=== PATIENT | female | born 1950 | race Caucasian/White ===

== ENCOUNTER 2018-01-06 02:26 | Emergency (ER) | payer MEDICARE, BC ==
[~2018-01-06] VITALS: Ht 152.4 cm; Wt 43.0 kg
--- NOTE | 2018-01-06 02:35 | PHYS DOC ---
General Chief Complaint: COUGH Stated Complaint: CHEST WALL PAIN Time Seen by MD: 02:28 Source: patient Exam Limitations: clinical condition Problems: History of Present Illness Initial Comments 67 y/o female to ED complains of left-sided chest wall pain and worsening cough. Patient has history of COPD and asthma, states she's been dealing with a cough now for several days. She ran out of DuCardMunch treatments and Tessalon Perles are not helping. Tonight after a severe coughing spell she felt severe sharp pain between her ribs at the left side of her chest worse with deep breaths and certain movements. She's been struggling with dyspnea but denies any new symptoms tonight, no fever chills diaphoresis nausea vomiting arm or neck symptoms. On ED arrival vital signs are stable and although symptoms appear to be musculoskeletal full workup initiated. Timing/Duration: 1 week Severity: severe Modifying Factors: worse with movement, improves with rest, improves with other Associated Symptoms: cough, shortness of breath, other Allergies: Coded Allergies: Penicillins (Verified Allergy, Unknown, 01/06/18) Past Medical History Medical History: COPD, other (depression, hypertension, asthma, restless leg, hyperlipidemia) Surgical History: other Social History Smoker: quit greater than 1 year (quit smoking 16 years ago) Alcohol: rarely Drugs: none Review of Systems Constitutional: denies chills, denies diaphoresis, denies fever, denies malaise Respiratory: see HPI, cough, shortness of breath, wheezing Cardiovascular: chest pain, denies palpitations, denies syncope Gastrointestinal: denies abdominal pain, denies nausea, denies vomiting Musculoskeletal: see HPI Psychiatric/Neurological: denies headache, denies numbness, denies paresthesia Hematologic/Lymphatic: denies blood clots, denies easy bleeding, denies easy bruising Physical Exam General Appearance: moderate distress (severe coughing episodes and left-sided chest wall pain) Ear, Nose, Throat: hearing grossly normal, normal ENT inspection (dry membranes ) Neck: non-tender, supple Respiratory: decreased breath sounds, wheezing, other (point tender at the costal cartilage left side sixth rib interspace identically reproducing chief complaint) Cardiovascular: normal peripheral pulses, regular rate, rhythm Gastrointestinal: non tender, soft Back: no CVA tenderness, no vertebral tenderness Extremities: non-tender, normal inspection Neurologic/Psychiatric: prism measurer II-XII nml as tested, no motor/sensory deficits, alert, oriented x 3 Orders, Labs, Meds K+ 3.3, 20meq KCL given PO AP chest: Hyperinflation with COPD changes noted no discrete infiltrates interpreted by me. Labs unremarkable 0436: Patient rechecked, cough/wheeze resolved completely with solumedrol. Costal cartilage pain resolved with toradol patient states it is /10. Requesting discharge. I discussed prescription and [id number] medications as well as home medications. Discussed close PCP follow-up patient's questions were answered she expressed agreement and understanding with the treatment plan. Departure Time of Disposition: 04:35 Disposition: 01 HOME, SELF-CARE Diagnosis: COPD exacerbation, Costochondritis, hypokalem Condition: IMPROVED Patient Instructions: Costochondritis, Jwjk-[id number]-Ahyr, Hypokalemia-Brief Additional Instructions: Please review the patient education materials given by ED staff. ED one banana daily to supplement potassium. Use home albuterol as needed for cough. Prescription: Prednisone, DuoNeb, guaifenesin with codeine syrup Follow-up with your doctor in 3-5 days for recheck. Return to ED with new or changing symptoms. TAURUS ZAMORA DO Jan 06, 2018 02:35
[2018-01-06] MEDS ORDERED: ALBU8.5H8 INH (02:55)
[2018-01-06] MEDS ORDERED: ATEN25TA PO (02:59)
[2018-01-06] MEDS ORDERED: BUDE10.2 IH (02:59)
[2018-01-06] MEDS ORDERED: TIOT18CA IH (02:59)
[2018-01-06] MEDS ORDERED: BENZ100C PO (02:59)
[2018-01-06] MEDS ORDERED: PRAV10TA2 PO (02:59)
[2018-01-06] MEDS ORDERED: [UNRECOGNIZED DRUG - OTHER] PO (02:59)
[2018-01-06] MEDS ORDERED: ALBU2.5V14 NEB (02:59)
--- NOTE | 2018-01-06 03:10 | EKG ---
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
[2018-01-06] MEDS ORDERED: methylPREDNISolone SOD SUCC PF 125 MG/2 ML VIAL. IV ONE (03:30)
[2018-01-06] MEDS ORDERED: KETOROLAC 30 MG/ML VIAL. IV ONE (03:30)
[2018-01-06] MEDS ORDERED: ASPIRIN 81 MG TAB.CHEW PO ONE (03:30)
[2018-01-06] MEDS ORDERED: NITROGLYCERIN SUBLINGUAL 0.4 MG BOTTLE OF 25. SL PRN (03:30)
[2018-01-06 03:48] LABS: BASO % 0 % (0-3); EOS % 0 % (0-3); HEMATOCRIT 37.9 % (36.0-47.0); HEMOGLOBIN 12.8 g/dL (12.0-15.5); LYMPH # 0.8 x10^3/uL (1.0-4.8); LYMPH % 8 % (24-48); MEAN CORPUSCULAR HEMOGLOBIN 30 pg (25-35); MEAN CORPUSCULAR HGB CONC 34 g/dL (31-37); MEAN CORPUSCULAR VOLUME 89 fL (79-100); MONO # 1.3 x10^3/uL (0.0-1.1); MONO % 12 % (0-9); NEUT # 8.4 x10^3uL (1.8-7.7); NEUT % 80 % (31-73); PLATELET COUNT 399 x10^3/uL (140-400); RED BLOOD COUNT 4.24 x10^6/uL (3.50-5.40); RED CELL DISTRIBUTION WIDTH 12.9 % (11.5-14.5); WHITE BLOOD COUNT 10.6 x10^3/uL (4.0-11.0)
[2018-01-06 03:59] LABS: ALBUMIN 3.4 g/dL (3.4-5.0); ALBUMIN/GLOBULIN RATIO 0.8 (1.0-1.7); GFR 55.6; POTASSIUM 3.3 mmol/L (3.5-5.1); TOTAL BILIRUBIN 0.4 mg/dL (0.2-1.0); TOTAL PROTEIN 7.9 g/dL (6.4-8.2)
[2018-01-06 04:04] LABS: INFLUENZA A PATIENT NEGATIVE (NEGATIVE); INFLUENZA B PATIENT NEGATIVE (NEGATIVE)
[2018-01-06 04:15] VITALS: BP 122/55
[2018-01-06] MEDS ORDERED: POTASSIUM CHLORIDE 20 MEQ TABLET.ER. PO ONE (04:30)
[2018-01-06] MEDS ORDERED: PRED20TA PO (04:34)
[2018-01-06] MEDS ORDERED: IPRA3AMP NEB (04:34)
[2018-01-06] MEDS ORDERED: GUAI118L13 PO (04:34)
--- NOTE | 2018-01-06 09:03 | RAD ---
Indication: Chest pain, cough. Technique: Portable AP upright chest x-ray Comparison: Previous study from 05/29/2016 Findings: Heart is normal in size. Lungs are hyperinflated. Diffuse bilateral coarse interstitial opacities noted without focal consolidation. Redemonstrated are couple of small radiopaque nodules in the right midlung zone also seen on previous study from 2016. No pneumothorax or pleural effusion. Visualized bony thorax is within normal limits. Impression: 1. No acute cardiopulmonary process. Chronic interstitial changes. Superimposed interstitial infection not ruled out. 2. Stable couple of nodules in the right midlung zone also seen on previous CT chest from study from 2013 compatible with calcified granulomas.
== END 2018-01-06 04:45 | disposition home or self-care (01) ==
LOC: ER 02:26
DX: J44.1 Chronic obstructive pulmonary disease with (acute) exacerbation (principal); M94.0 Chondrocostal junction syndrome [Tietze]; E87.6 Hypokalemia; E78.5 Hyperlipidemia, unspecified; F32.9 Major depressive disorder, single episode, unspecified; G25.81 Restless legs syndrome; I10 Essential (primary) hypertension; Z87.891 Personal history of nicotine dependence; Z88.0 Allergy status to penicillin
CPT/HCPCS: 36415; 71045; 80053; 83605; 83880; 84484; 85025; 85379; 87040; 87804; 93005; 96374; 96375; 99285; J1885; J2930

== ENCOUNTER → 2018-07-08 | Outpatient (CLI) | payer BC ==
[~2018-07-08] MED LIST: ALBU2.5V14 NEB; ALBU8.5H8 INH; ATEN25TA PO; BENZ100C PO; BUDE10.2 IH; GUAI118L13 PO; IPRA3AMP29 NEB; PRAV10TA2 PO; PRED20TA PO; TIOT18CA IH; [UNRECOGNIZED DRUG - OTHER] PO
--- NOTE | 2018-07-09 08:21 | RAD ---
Chest, 2 views, 07/08/2018: HISTORY: Unexplained weight loss Comparison is made to a study from 01/06/2018. The heart size is normal. There are emphysematous changes in the lungs with mild parenchymal scarring. A nodule projected over the anterior aspect of the right lung on the lateral view is unchanged since 05/29/2016. The CT study from 03/12/2014 shows that this is a bilobed nodule with areas of dense central calcification compatible with old granulomatous disease. No acute infiltrate is seen. There is no evidence of pleural fluid. Moderate scattered spurs are present in the spine. IMPRESSION: 1. Emphysema. 2. Old healed granulomatous disease in the chest. 3. No acute abnormality is detected. Electronically signed by: Scar Andrew MD (07/09/2018 8:18 AM) [facility]
== END | disposition home or self-care (01) ==
LOC: DXRAD 17:40
PROVIDERS: ATTEND Family Medicine
DX: J43.9 Emphysema, unspecified (principal); I10 Essential (primary) hypertension; E78.5 Hyperlipidemia, unspecified; Z87.891 Personal history of nicotine dependence
CPT/HCPCS: 71046

== ENCOUNTER → 2018-08-12 | Outpatient (CLI) | payer BC ==
--- NOTE | 2018-08-12 13:37 | RAD ---
EXAM: Left hip, 2 views; left femur, 2 views. HISTORY: Pain and numbness. COMPARISON: None. FINDINGS: Frontal and frog-leg views left hip and frontal and lateral views left femur are obtained. There is no fracture, dislocation or subluxation. No lytic or sclerotic osseous lesion is seen. There is no periosteal reaction. IMPRESSION: No acute osseous finding. Electronically signed by: Lakisha Landers MD (08/12/2018 1:33 PM) [place] [id number]
== END | disposition home or self-care (01) ==
LOC: PMG 10:42
PROVIDERS: ATTEND Family Medicine
DX: R20.0 Anesthesia of skin (principal)
CPT/HCPCS: 73502; 73552

== ENCOUNTER → 2020-05-31 | Outpatient (CLI) | payer BC ==
[~2020-05-31] MED LIST changes: +ALBU2.5V8 INH; -ALBU8.5H8 INH; -ATEN25TA PO; +ATEN25TA42 PO
== END | disposition home or self-care (01) ==
LOC: LAB 08:50
PROVIDERS: ATTEND Nurse Anesthetist, Certified Registered
DX: Z01.818 Encounter for other preprocedural examination (principal); Z11.59 Encounter for screening for other viral diseases; K22.70 Barrett's esophagus without dysplasia
CPT/HCPCS: 36415; U0003

== ENCOUNTER → 2020-06-03 | Day surgery (SDC) | payer MEDICARE, BC ==
[~2020-06-03] MED LIST changes: +IPRATRPIUM/ALBUTEROL 0.5/2.5MG 3 ML NEBU. NEB PRN; +IV RINGERS SOLUTION,LACTATED 1,000 ML IV SCH; +MIDAZOLAM HCL PF 2 MG/2 ML VIAL. IV ONE; +ONDANSETRON PF 4 MG/2 ML VIAL. IV PRN; +PROPOFOL 10,000 MCG/ML (20ML) VIAL IV ONE
[2020-06-03 11:35] VITALS: BP 121/65
--- NOTE | 2020-06-07 18:11 | PATHOLOGY ---
[facility] Accession Number: [id number] . 01 Material submitted: . PART A: stomach - GASTRIC BIOPSY PART B: small bowel - SMALL BOWEL BIOPSY PART C: esophagus - IRREGULAR Z LINE BIOPSY PART D: esophagus - ESOPHAGUS BIOPSY . 01 Clinical history: . None provided. . 02 Diagnosis: A. Gastric biopsies: - Chronic gastritis, mild, with small focus of intestinal metaplasia. . B. Small bowel biopsies: - No significant pathologic abnormalities. . C. Irregular Z-line biopsies: - Segments of hyperplastic squamous esophageal and esophagogastric mucosa showing chronic inflammation, and segment of specialized columnar epithelium showing intestinal metaplasia with goblet cells consistent with Fortune's change. . D. Esophageal biopsies: - Segments of mildly hyperplastic squamous esophageal mucosa. (JPM:loren 06/07/2020) [facility] 06/07/2020 1725 Local . 02 Comment: Sections of the gastric biopsy reveal segments of gastric antral mucosa which show congestion, mild chronic inflammation, and a small focus of intestinal metaplasia. A properly controlled immunoperoxidase stain for Helicobacter is negative for Helicobacter organisms. . Sections of the small bowel biopsy reveal segments of duodenal and small intestine mucosa. Where best oriented, the mucosal villi show no sprue-like changes or significant inflammatory changes. . Sections of the irregular Z-line biopsy reveal segments of hyperplastic squamous esophageal and esophagogastric mucosa showing moderate chronic inflammation, in addition to a segment of columnar lined mucosa showing mild chronic inflammation and intestinal metaplasia with goblet cells consistent with Fortune's change. There is no dysplasia or evidence of malignancy. . Sections of the esophageal biopsy reveal segments of focally tangentially oriented mildly hyperplastic squamous esophageal mucosa. There is no evidence of an eosinophilic esophagitis. There is no evidence of Fortune's change, dysplasia or malignancy. (JPM:loren 06/07/2020) . Special stain performed: Immunoperoxidase for Helicobacter on A1. . 02 Electronically signed: . Jose West MD, Pathologist NPI- [id number] . 01 Gross description: . A. Received in formalin labeled "Lindsey Ozuna, gastric for H. pylori" is a 0.5 x 0.4 x 0.1 cm aggregate of olvera-brown soft tissue fragments. The specimen is submitted entirely in A1. . B. Received in formalin labeled "Lindsey Ozuna, small bowel rule out sprue" is a 0.7 x 0.7 x 0.1 cm aggregate of olvera-brown soft tissue fragments. The specimen is submitted entirely in B1. . C. Received in formalin labeled "Lindsey Ozuna, irregular Z line for hx of Fortune's" is a 1.0 x 0.6 x 0.1 cm aggregate of olvera-brown soft tissue fragments. The specimen is submitted entirely in C1. . D. Received in formalin labeled "Lindsey Ozuna, esophagus BX rule out eosinophilic esophagitis" is a 0.8 x 0.5 x 0.1 cm aggregate of olvera-brown soft tissue fragments. The specimen is submitted entirely in D1. ([facility]; 06/06/2020) [facility] 06/07/2020 1045 Local . 02 Pathologist provided ICD-10: K29.50, K22.70 . 02 CPT . 649523, 486858, 909673, 031202, D59074 Specimen Comment: A courtesy copy of this report has been sent to [phone] Specimen Comment: [id number] Specimen Comment: Report sent to / DR BRIZUELA Performed at: 01 [facility] [address] [facility] [address], [place] [id number] MD Vance Fatima MD Phone: [phone] Performed at: 02 [facility] [address] [place], [place] [id number] MD Jose West MD Phone: [phone]
== END | disposition home or self-care (01) ==
LOC: SURG 08:46
PROVIDERS: ATTEND Internal Medicine Gastroenterology
DX: K29.50 Unspecified chronic gastritis without bleeding (principal); K22.2 Esophageal obstruction; K44.9 Diaphragmatic hernia without obstruction or gangrene; K22.70 Barrett's esophagus without dysplasia; R63.4 Abnormal weight loss; Z88.0 Allergy status to penicillin; Z79.899 Other long term (current) drug therapy
CPT/HCPCS: 43239; 43450; J2704; J7120

== ENCOUNTER 2020-09-13 15:12 | Observation (INO) | payer BC, MEDICARE ==
[~2020-09-13] VITALS: Ht 152.4 cm; Wt 33.4 kg
[~2020-09-13 15:12] MED LIST changes: -IPRATRPIUM/ALBUTEROL 0.5/2.5MG 3 ML NEBU. NEB PRN; -IV RINGERS SOLUTION,LACTATED 1,000 ML IV SCH; -MIDAZOLAM HCL PF 2 MG/2 ML VIAL. IV ONE; -ONDANSETRON PF 4 MG/2 ML VIAL. IV PRN; -PROPOFOL 10,000 MCG/ML (20ML) VIAL IV ONE
[2020-09-13] MEDS ORDERED: IV NORMAL SALINE 1,000ML 1,000 ML IV ONE ×2 (15:15→17:00)
--- NOTE | 2020-09-13 15:38 | PHYS DOC ---
Past History Past Medical History: COPD, Hypertension Past Surgical History: Smoking: Non-smoker Alcohol Use: Heavy Drug Use: None General Adult EDM: Chief Complaint: DIZZY/LIGHT HEADED HPI: HPI: 70-year-old female presents with dizziness and 2 falls today. Patient tells me that she has had intermittent dizziness which she describes as a feeling of motion. She has fallen down 2 times today. She has gotten very weak and unable to keep her self standing up. She states that she had a similar episode to this a year ago and they did not figure out what was causing it. The patient states that she feels shaky all over. She is wondering about Parkinson's. There is no family history of Parkinson's. She has never been diagnosed with Parkinson's. She further admits to seeing moving shadows at night. She knows that they are not there. She does not describe any specific figures. The patient is a daily alcohol drinker. She tells me that she drinks 2 beers a day and the occasional bloody Shantelle. Her last drink was yesterday. She denies fever or chills. Family called the emergency room and is also concerned about Parkinson's. They state she also has audible hallucinations. Today family found her outside of the house where she lives with her son. She was in the yard on the ground and could not stand up. Review of Systems: Review of Systems: Constitutional: Denies fever or chills. Generalized weakness. Eyes: Denies change in visual acuity HENT: Denies nasal congestion or sore throat Respiratory: Denies cough or shortness of breath Cardiovascular: Denies chest pain or edema GI: Denies abdominal pain, nausea, vomiting, bloody stools or diarrhea : Denies dysuria Musculoskeletal: Denies back pain or joint pain Integument: Denies rash Neurologic: Dizziness. Denies headache, focal weakness or sensory changes Endocrine: Denies polyuria or polydipsia Lymphatic: Denies swollen glands Psychiatric: anxiety Current Medications: Current Meds: Current Medications Medications (Trade) Dose Ordered Sig/Ashley Start Time Stop Time Status Last Admin Dose Admin Sodium Chloride 1,000 ml @ 1,000 mls/hr 1X ONCE 09/13/20 15:15 09/13/20 16:14 Allergies: Allergies: Allergies Coded Allergies Type Severity Reaction Last Updated Verified Penicillins Allergy Unknown 01/06/18 Yes Physical Exam: PE: Constitutional: Well developed, thin, no acute distress, non-toxic appearance. [] HENT: Normocephalic, atraumatic, bilateral external ears normal, oropharynx moist, no oral exudates, nose normal. [] Eyes: PERRLA, EOMI, conjunctiva normal, no discharge. [] Neck: Normal range of motion, no tenderness, supple, no stridor. [] Cardiovascular: Heart rate regular rhythm, no murmur [] Lungs & Thorax: Bilateral breath sounds clear to auscultation [] Abdomen: Bowel sounds normal, soft, no tenderness, no masses, no pulsatile m asses. [] Skin: Warm, dry, no erythema, no rash. [] Back: No tenderness, no CVA tenderness. [] Extremities: No tenderness, no cyanosis, no clubbing, ROM intact, no edema. [] Neurologic: Alert and oriented X 3, normal motor function, normal sensory function, no focal deficits noted. [] Psychologic: Affect normal, judgement normal, mood anxious. [] Current Patient Data: Vital Signs: Vital Signs Date Time Temp Pulse Resp B/P (MAP) Pulse Ox O2 Delivery O2 Flow Rate FiO2 09/13/20 15:24 97.5 105 20 178/83 (114) 93 Room Air EKG: EKG: [] Radiology/Procedures: Radiology/Procedures: [] Impressions: CT HEAD INDICATION: Reason: recent fall, dizzy, etoh / Spl. Instructions: / History: COMPARISON: None Available. Exposure: One or more of the following individualized dose reduction techniques were utilized for this examination: 1. Automated exposure control 2. Adjustment of the mA and/or kV according to patient size 3. Use of iterative reconstruction technique TECHNIQUE: 5 mm contiguous axial images were obtained from the skull base to the vertex in both bone and soft tissue algorithm. FINDINGS: No abnormal attenuation within the brain parenchyma. No evidence of acute intracranial hemorrhage. No extra-axial fluid collections. No mass effect or midline shift. Ventricular size is appropriate. Basal cisterns are patent. No fractures identified.Becerra-white differentiation is preserved.Globes and orbits are within normal limits. Paranasal sinuses and mastoid air cells are clear. IMPRESSION: No acute intracranial findings. Electronically signed by: Americo Brown MD (09/13/2020 4:00 PM) [id number] DICTATED AND SIGNED BY: AMERICO BROWN MD DATE: 09/13/20 1600 CC: SID WERNER DO; TANMAY BRIZUELA MD ~ Heart Score: Risk Factors: Risk Factors: DM, Current or recent (<one month) smoker, HTN, HLP, family history of CAD, obesity. Risk Scores: Score 0 - 3: 2.5% MACE over next 6 weeks - Discharge Home Score 4 - 6: 20.3% MACE over next 6 weeks - Admit for Clinical Observation Score 7 - 10: 72.7% MACE over next 6 weeks - Early Invasive Strategies Course & Med Decision Making: Course & Med Decision Making Pertinent Labs and Imaging studies reviewed. (See chart for details) The patient's labs are unremarkable. Her head CT is negative for acute findings. Her urinalysis is negative for infection or drugs. The patient's symptoms could have a central cause, but they could also be related to her alcohol consumption. At this time it does not appear that she can function at home. I spoke with the hospitalist, Dr. Cardona and he has accepted the patient for admission. He will have physical therapy and likely neurology see the patient for more in-depth evaluation of her mental status and hallucinations. [] Dragon Disclaimer: Dragon Disclaimer: This electronic medical record was generated, in whole or in part, using a voice recognition dictation system. Departure Departure: Impression: Primary Impression: Dizziness Additional Impression: Hallucinations Disposition: ADMITTED INPT THIS HOSP Admitting Physician: Peyman Cardona Condition: STABLE Referrals: TANMAY BRIZUELA MD (PCP) SID WERNER DO Sep 13, 2020 15:38
--- NOTE | 2020-09-13 15:47 | RAD ---
EXAM: CHEST 1 VIEW History: Dizziness COMPARISON: 07/08/2018 TECHNIQUE: Single portable radiograph of the chest FINDINGS: The cardiac silhouette is unremarkable. Mild prominent bilateral interstitial lung markings likely chronic interstitial changes. There is a bilobed 1.7 cm nodule identified in the right lower lobe of the lung stable since prior exam. IMPRESSION: Mild prominent prevention lung markings likely chronic interstitial changes or interstitial infiltrates or edema. Electronically signed by: Americo Brown MD (09/13/2020 3:44 PM) [id number]
[2020-09-13] MEDS ORDERED: IPRATRPIUM/ALBUTEROL 0.5/2.5MG 3 ML NEBU. NEB ONE (16:00)
--- NOTE | 2020-09-13 16:03 | RAD ---
CT HEAD INDICATION: Reason: recent fall, dizzy, etoh / Spl. Instructions: / History: COMPARISON: None Available. Exposure: One or more of the following individualized dose reduction techniques were utilized for this examination: 1. Automated exposure control 2. Adjustment of the mA and/or kV according to patient size 3. Use of iterative reconstruction technique TECHNIQUE: 5 mm contiguous axial images were obtained from the skull base to the vertex in both bone and soft tissue algorithm. FINDINGS: No abnormal attenuation within the brain parenchyma. No evidence of acute intracranial hemorrhage. No extra-axial fluid collections. No mass effect or midline shift. Ventricular size is appropriate. Basal cisterns are patent. No fractures identified.Becerra-white differentiation is preserved.Globes and orbits are within normal limits. Paranasal sinuses and mastoid air cells are clear. IMPRESSION: No acute intracranial findings. Electronically signed by: Americo Brown MD (09/13/2020 4:00 PM) [id number]
[2020-09-13 16:12] LABS: BASO % 1 % (0-3); EOS # 0.3 x10^3/uL (0.0-0.7); EOS % 6 % (0-3); HEMATOCRIT 41.4 % (36.0-47.0); HEMOGLOBIN 13.3 g/dL (12.0-15.5); LYMPH # 1.1 x10^3/uL (1.0-4.8); LYMPH % 24 % (24-48); MEAN CORPUSCULAR HEMOGLOBIN 30 pg (25-35); MEAN CORPUSCULAR HGB CONC 32 g/dL (31-37); MEAN CORPUSCULAR VOLUME 94 fL (79-100); MONO # 0.5 x10^3/uL (0.0-1.1); MONO % 12 % (0-9); NEUT # 2.5 x10^3uL (1.8-7.7); NEUT % 56 % (31-73); PLATELET COUNT 265 x10^3/uL (140-400); RED CELL DISTRIBUTION WIDTH 14.1 % (11.5-14.5); WHITE BLOOD COUNT 4.4 x10^3/uL (4.0-11.0)
[2020-09-13 16:20] LABS: CALCIUM 9.2 mg/dL (8.5-10.1); CREATININE 0.7 mg/dL (0.6-1.0); GFR 83.2; POTASSIUM 3.6 mmol/L (3.5-5.1)
[2020-09-13 16:26] LABS: BARBITURATES NEG (NEG); BENZODIAZEPINES NEG (NEG); CANNABINOIDS NEG (NEG); COCAINE NEG (NEG); METHADONE NEG (NEG); OPIATES NEG (NEG); PHENCYCLIDINE NEG (NEG)
[2020-09-13 16:26] LABS: ALBUMIN 3.6 g/dL (3.4-5.0); ALBUMIN/GLOBULIN RATIO 1.1 (1.0-1.7); TOTAL BILIRUBIN 0.2 mg/dL (0.2-1.0)
[2020-09-13 16:31] LABS: AMPHETAMINE/METHAMPHETAMINE NEG (NEG)
[2020-09-13] MEDS ORDERED: ONDANSETRON PF 4 MG/2 ML VIAL. IVP PRN (17:00)
[2020-09-13 17:07] LABS: BILIRUBIN,URINE NEG (NEG); CLARITY,URINE CLEAR; COLOR,URINE STRAW; GLUCOSE,URINE NEG (NEG)
[2020-09-13 17:08] LABS: BACTERIA,URINE 0 /HPF (0-FEW); NITRITE,URINE NEG (NEG); RBC,URINE 0 /HPF (0-2); SQUAMOUS EPITHELIAL CELL,UR OCC /LPF; UROBILINOGEN,URINE 0.2 mg/dL (0.2 mg/dL); WBC,URINE 0 /HPF (0-4)
--- NOTE | 2020-09-13 17:52 | EKG ---
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
--- NOTE | 2020-09-13 19:30 | NUR ---
The patient, COLTON MONTGOMERY, 70 y/o, F admitted by JEISON BARRAZA MD, was given written information regarding hospital policies, unit procedures and contact persons. Valuables were checked and documented. Vitals are stable. Pt is A&O and able to express any concerns she has. Pt had no complaints upon admission. Pt is currently resting in bed. Will continue to monitor.
[2020-09-13 19:43] VITALS: BP 141/57
[2020-09-13] MEDS ORDERED: CETI10CA PO (21:50)
[2020-09-13] MEDS ORDERED: ATOR40TA59 PO (21:50)
[2020-09-13] MEDS ORDERED: BUPR300T92 PO (21:50)
[2020-09-13] MEDS ORDERED: ASPI81TA59 PO (21:50)
[2020-09-13] MEDS ORDERED: ALEN70TA60 PO (21:50)
[2020-09-13] MEDS ORDERED: PANT40TA6 PO (21:50)
[2020-09-13] MEDS ORDERED: AMLO-186 PO (21:50)
[2020-09-13 22:36] VITALS: BP 104/57
[2020-09-14 05:30] VITALS: BP 137/78
--- NOTE | 2020-09-14 05:47 | NUR ---
pt stated this evening that she has fallen multiple times recently, she cant stop shaking and that she dropped her dog off at the groomer and forgot how to get back to pick her dog up.
[2020-09-14] MEDS: PANTOPRAZOLE 40 MG TABLET. PO SCH (07:50)
[2020-09-14] MEDS: ASPIRIN CHEWABLE 81 MG TABLET. PO SCH (07:50)
[2020-09-14] MEDS: CETIRIZINE HCL 10 MG TABLET PO SCH (07:50)
[2020-09-14] MEDS: buPROPion XL 300 MG TAB.ER.24H. PO SCH (07:50)
--- NOTE | 2020-09-14 09:34 | CONS ---
DATE OF CONSULTATION: NEUROLOGY CONSULTATION REFERRING PHYSICIAN: Dr. Cardona. REASON FOR CONSULTATION: Frequent falls and unsteady gait. HISTORY OF PRESENT ILLNESS: This is a 70-year-old right-handed female was admitted yesterday through Emergency Room after she presented with chief complaints of intermittent dizziness described as unsteadiness for 1 day. The patient stated she tried to get to the groomer of dog, she missed direction and spent half hours to reach the place. However, the patient was able to drive back home with the dog without any problem. Yesterday, she was working on the dog chain and all of a sudden she felt weak all over and shaking. She was not able to stand up and she fell twice. She was found by her family members on the ground outside the house. The patient stated she was weak all over and she could not stand up. She denies headaches, chest pain, shortness of breath or palpitation. The patient stated in the last few days when she woke up in the morning, she sees spots for short period of time. She denies visual or auditory hallucinations. She had a similar episode a year ago. On occasion, she complains of numbness and paresthesia of the legs and sometimes she gets forgetful. She denies any head injuries. Initial nonenhanced head CT scan revealed no acute intracranial process. PAST MEDICAL HISTORY: Significant for COPD, hypertension, the patient with recent weight loss and generalized weakness, GERD and depression. PAST SURGICAL HISTORY: Positive for . SOCIAL HISTORY: The patient lives with her son at home. She denies smoking, but she drinks 1-2 beers daily. FAMILY HISTORY: Noncontributory; however, father had pancreatic cancer and mother had heart disease. CURRENT MEDICATIONS: Include Zyrtec 10 mg daily, pantoprazole 40 mg daily, bupropion 300 mg daily, aspirin 81 mg daily. ALLERGIES: PENICILLIN. REVIEW OF SYSTEMS: A 12-point review of system was performed as mentioned above in history of present illness, otherwise unremarkable. PHYSICAL EXAMINATION: GENERAL: Very thin white female, not in acute distress. She weighs 35.6 kilos. VITAL SIGNS: Blood pressure 137/78, respiratory rate 20, pulse is 85 and regular, temperature 98.1, oxygen saturation is 95% on room air. HEENT: Normocephalic, atraumatic, otherwise unremarkable. NECK: Supple. Negative for carotid bruit, lymphadenopathy or thyromegaly. LUNGS: Clear to A and P. CARDIOVASCULAR: Regular rate and rhythm, normal S1, S2. There is no S3, S4 or murmur. ABDOMEN: Soft. Bowel sounds positive. EXTREMITIES: Negative for cyanosis, clubbing or pitting edema. NEUROLOGICAL: MENTAL STATUS: The patient is alert and oriented x 3. Speech is fluent. There is no language dysfunction. She recalls 3/3 immediately and 2/3 after 3 minutes. Judgment and abstract thinking are normal. The patient denies hallucination or delusion. CRANIAL NERVES: Visual elder are full. The pupils are reactive to light and accommodation. The extraocular movements are intact. There is no nystagmus. There is no facial motor or sensory deficit. Hearing is diminished bilaterally. The palate is elevated symmetrically. Sternocleidomastoid muscles are powerful bilaterally. The patient shrugs her shoulders symmetrically, protrudes her tongue in the midline without fasciculation or atrophy. MOTOR EXAMINATION: No focal muscle bulk was seen. The tone is normal. The strength is 5/5 throughout. SENSORY EXAMINATION: Revealed normal pinprick, light touch, vibratory and position senses. Deep tendon reflexes were symmetric and hypoactive with absent Achilles responses. GAIT: The stance is steady. The patient makes a few steps without assistance. DIAGNOSTIC DATA: A nonenhanced head CT scan revealed no evidence of acute intracranial process. Chest x-ray revealed chronic interstitial changes. LABORATORY DATA: CBC revealed white blood cells of 4.4 thousand, hemoglobin 13.3, hematocrit 41.4, platelet count 265,000. Chemistry revealed sodium 143, potassium 3.6, chloride 105, CO2 of 30, BUN 18, creatinine 0.7, glucose 100, calcium 9.2. Liver enzymes are normal. Troponin level is normal. Urinalysis is negative for urinary tract infection. Urine drug screen is negative. IMPRESSION: 1. Generalized weakness. 2. Difficult to thrive with history of weight loss of unknown etiology. 3. Recent frequent falls, likely due to generalized weakness and possible partial hypertension. 4. History of hypertension, anxiety and moderate depression. RECOMMENDATIONS: 1. Continue with current medical care. 2. Physical therapy evaluation. 3. Possible need workup for weight loss and dietitian consultations. M Bashir MURGUIA MD DR: ANITA/thompson JOB#: [id number] / [id number]
[2020-09-14 10:26] VITALS: BP 109/65
--- NOTE | 2020-09-14 11:12 | HP ---
ADMIT DATE: 09/13/2020 ATTENDING PHYSICIAN: Dr. Barraza. CHIEF COMPLAINT: Frequent falls and confusion. HISTORY OF PRESENT ILLNESS: The patient is a 70-year-old female admitted through the ED with intermittent dizziness and unsteadiness for 1 day. She tried to take her dog out to the groomer. She fell, did not break anything. She was very confused, weak all over. She denies headache, chest pain, shortness of breath. No COVID exposure. No absolute infection. She has a past medical history significant for COPD, hypertension. She has also had generalized weakness, confusion, weight loss and major depression. In the ED, the workup was fairly unremarkable. CT of the head demonstrated no acute strokes. Chest x-ray was clear. She was admitted for further evaluation and treatment and neurologic consultation. PAST MEDICAL HISTORY: Significant for COPD. She quit smoking 10 years ago, hypertension, recent weight loss, gastroesophageal reflux disease. PAST SURGICAL HISTORY: section. SOCIAL HISTORY: She recently moved in with her son, whether the son moved in with her remains to be seen. He does not have a job. 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 She said she quit smoking many years ago. She drinks 1-2 beers daily. She may have underestimated. CURRENT MEDICATIONS: Include Zyrtec, Protonix, bupropion, aspirin daily. ALLERGIES: SHE HAS ALLERGIES TO PENICILLIN, WHICH CAUSES A RASH. REVIEW OF SYSTEMS: Significant for the weight loss. She has some constipation, says her stools are hard. No fevers, chills, pain, headache, nausea. All other systems reviewed and turned to be negative. PHYSICAL EXAMINATION: GENERAL: When I saw her, this is a pleasant, thin female. INITIAL VITAL SIGNS: Showed a blood pressure 137/78, pulse was 86 and regular. She was afebrile, oxygen saturation 95% on room air. Her weight was 36 kilograms, which adds up to about 80 pounds. HEENT: Head is without trauma. Pupils are reactive. Sclerae nonicteric. Oropharynx clear. NECK: Supple, no bruits. LUNGS: Otherwise, clear. CARDIOVASCULAR: Showed regular heart tones. No gallops. Peripheral pulses are palpable and full. ABDOMEN: Soft, scaphoid, nontender, no organomegaly. Bowel sounds are hypoactive. EXTREMITIES: Showed no cyanosis or edema. NEUROLOGIC: Speech is fluent. Puppet Master intact and symmetrical. There is no confusion. She was fairly alert and gave succinct history. PERTINENT LABORATORY STUDIES: The urinalysis is unremarkable. Hemoglobin maintained at 13.3 g/dL with white count of 4400. Electrolytes are within normal range. Creatinine 0.7 mg percent, nonfasting blood sugar 100. Cardiac enzymes negative. CT of the head demonstrated no acute strokes or bleeds. Chest x-ray, chronic interstitial changes without any acute infiltrates. ASSESSMENT: 1. A 70-year-old female with increased confusion, dizziness and falling. She has early onset of dementia due to Alzheimer's disease. 2. History of chronic alcoholism. Whether she drinks enough to warrant a diagnosis of Wernicke-Korsakoff syndrome remains to be seen. Clinically, she is not that bad yet. 3. Chronic obstructive pulmonary disease as evidenced by her chest x-ray. She has hyperexpansion. 4. Protein-calorie malnutrition. 5. Weight loss due to her chronic obstructive pulmonary disease. Her work of breathing constitutes a significant amount of her energy expansion. 6. Underlying depression with anxiety. 7. Gastroesophageal reflux disease. PLAN: 1. Full neurologic consultation. 2. Physical therapy recommendation. 3. Long discussion with family short-term and long-term goals. JEISON BARRAZA MD DR: MANUEL/thompson JOB#: [id number] / [id number]
[2020-09-14 14:28] VITALS: BP 124/63
--- NOTE | 2020-09-14 17:41 | NUR ---
End of shift Pt is A&O x4, but forgetful. She is up ad bogdan in room, with a FWW. No oxygen demands. Denies pain in any location. LBM is 09/11. Cont B&B. Skin is CDI with ecchymosis from falls et ASA use. No new issues identified this shift.
[2020-09-14 19:19] VITALS: BP 126/70
[2020-09-14 23:32] VITALS: BP 136/69
[2020-09-15 05:09] VITALS: BP 149/71
[2020-09-15] MEDS: ASPIRIN CHEWABLE 81 MG TABLET. PO SCH (08:15)
[2020-09-15] MEDS: CETIRIZINE HCL 10 MG TABLET PO SCH (08:16)
[2020-09-15] MEDS: PANTOPRAZOLE 40 MG TABLET. PO SCH (08:16)
[2020-09-15] MEDS: buPROPion XL 300 MG TAB.ER.24H. PO SCH (08:16)
[2020-09-15 10:38] VITALS: BP 129/63
--- NOTE | 2020-09-15 11:01 | PN ---
DATE: SUBJECTIVE: The patient denies any new medical or neurological complaints. OBJECTIVE: GENERAL: Thin white female, not in acute distress. VITAL SIGNS: Blood pressure 149/71, respiratory rate 19, pulse is 82, oxygen saturation 95% on room air, temperature 98.3. HEENT: Normocephalic and atraumatic, otherwise unremarkable. NECK: Supple. Negative for carotid bruit, lymphadenopathy or thyromegaly. LUNGS: Clear to A and P. CARDIOVASCULAR: Regular rate and rhythm, normal S1 and S2. There is no S3, S4 or murmur. ABDOMEN: Soft. Bowel sounds positive. EXTREMITIES: Negative for cyanosis, clubbing or edema. NEUROLOGICAL EXAM: Mental Status: The patient has normal mental status and intact cranial nerves. No focal motor or sensory deficit. Deep tendon reflexes were symmetric and hypoactive with absent Achilles responses. Gait and coordination are normal. IMPRESSION: 1. Generalized weakness, weight loss of unknown etiology, recent frequent falls due to generalized weakness and possible postural hypotension. 2. History of hyperlipidemia. 3. Anxiety and moderate depressions. RECOMMENDATIONS: 1. Check blood pressure for orthostatic hypotension. 2. Physical therapy evaluation and continue with previous neurological recommendations. M Bashir MURGUIA MD DR: ANITA/thompson JOB#: [id number] / [id number]
[2020-09-15 14:50] VITALS: BP 162/73
[2020-09-15 14:51] VITALS: BP_SYST 120; BP_SYST 136; BP_DIAS 67; BP_DIAS 71
--- NOTE | 2020-09-15 15:01 | NUR ---
DISCHARGE-Pt discharge to home with son. Ambulates to front, et gets into personal vehicle under own power. IV discontinued prior to DC. No oxygen demands. Belongings and discharge papers sent with patient. Education provided on discharge medications et stroke prevention at time of discharge.
--- NOTE | 2020-09-15 17:23 | DS ---
DATE OF DISCHARGE: 09/15/2020 HOSPITAL COURSE: The patient is a 70-year-old female patient who came to the Emergency Room with a complaint of generalized weakness. She stated that she tried to get to the groomer dog, she missed direction, spent half an hour to reach the place; however, the patient was able to drive back home with the dog without any problem. She also complained of generalized weakness all over. She could not stand up. She denies any headache, chest pain, shortness of breath or palpitation. She denies any visual or auditory hallucination. She had similar episode a year ago. She has been taking Benadryl for her allergy. She was extensively investigated in the Emergency Room and basically her nonenhanced CT scan revealed no acute intracranial process. She basically was started on Zyrtec, continued on Protonix and Wellbutrin. When I saw her today, she was sitting at the edge of the bed comfortably in no apparent distress. She denied any complaint. She stated that she is ready to go home. She has been up and about. She has no more weakness, no dizziness or lightheadedness. She has not had any fall and would like to go home. PHYSICAL EXAMINATION: GENERAL: When I examined her, she was pale, extremely cachectic, but not jaundiced, cyanosed or thyromegaly. No jugular venous distention. No limb edema. VITAL SIGNS: Her heart rate was 84, blood pressure was 129/63, temperature was 98.4, respiratory rate 20, and oxygen saturation was 94% on room air. Her orthostatics showed that her blood pressure standing was 162/73 with a heart rate of 87, sitting was 136/71 with a heart rate of 89 and standing was 120/67 with a heart rate of 94. However, the patient was asymptomatic. LABORATORY DATA: Showed a white cell count of 4400, hemoglobin 13.3, hematocrit 41, MCV 94 and platelet count 265,000 with normal manual differential. Her serum sodium was 143, potassium 3.6, chloride 105, bicarbonate 30, anion gap of 8, BUN 18, creatinine 0.7, estimated GFR was 83 mL per minute. Her glucose was 100, calcium was 9.2. Total bilirubin, AST, ALT, alkaline phosphatase were normal. Total protein 7, albumin was 3.6. I have seen the patient, observed her, she was able to walk in the corridors without any assistance or assistive devices. She denied any dizziness or lightheadedness and therefore, the patient was discharged home to continue on her current medication that included alendronate 70 mg once a week, amlodipine 5 mg once a day, aspirin 81 mg once a day, atorvastatin 40 mg at bedtime, Wellbutrin 300 mg daily. Cetirizine for Zyrtec 10 mg at bedtime and Protonix 40 mg daily for gastroesophageal reflux disease. FINAL DISCHARGE DIAGNOSES: 1. Dizziness and weakness has resolved. 2. Hypertension. 3. Hyperlipidemia. 4. Gastroesophageal reflux disease. 5. Osteoarthritis. 6. The patient is extremely cachectic with body mass index 14.4 kilograms per square meter. We discussed this finding and she said that she is feeling fine. She does not have any problem with anorexia. She is eating well and does not have any pain. I recommended that she should follow with her primary care physician ____ her marked weight loss. RL OBANDO MD DR: FELIPA/thompson JOB#: [id number] / [id number]
== END 2020-09-15 15:09 | disposition home or self-care (01) ==
LOC: ER 15:12 → 1 SOUTH 17:00 → INTOOBSV 17:00
PROVIDERS: ADMIT Hospitalist; ATTEND Hospitalist
DX: R41.0 Disorientation, unspecified (principal); R42 Dizziness and giddiness; R62.7 Adult failure to thrive; F10.20 Alcohol dependence, uncomplicated; J44.9 Chronic obstructive pulmonary disease, unspecified; E46 Unspecified protein-calorie malnutrition; R63.4 Abnormal weight loss; F41.8 Other specified anxiety disorders; K21.9 Gastro-esophageal reflux disease without esophagitis; I10 Essential (primary) hypertension; R44.3 Hallucinations, unspecified; M19.90 Unspecified osteoarthritis, unspecified site; E78.5 Hyperlipidemia, unspecified; G30.9 Alzheimer's disease, unspecified; R29.6 Repeated falls; R53.1 Weakness; Z68.1 Body mass index [BMI] 19.9 or less, adult; Z87.891 Personal history of nicotine dependence; Z98.891 History of uterine scar from previous surgery
CPT/HCPCS: 36415; 70450; 71045; 80053; 80307; 81001; 84484; 85025; 93005; 94640; 96360; 96361; 99285; G0378; J7030; G0379

== ENCOUNTER → 2020-10-11 | Outpatient (CLI) | payer BC, MEDICARE ==
[2020-09-15 14:51] VITALS: BP 120/67
[~2020-10-11] MED LIST changes: +ALEN70TA60 PO; +AMLO-186 PO; +ASPI81TA59 PO; +ATOR40TA59 PO; +BUPR300T92 PO; +CETI10CA PO; +PANT40TA6 PO
--- NOTE | 2020-10-11 14:40 | RAD ---
EXAM: Nuclear gastric emptying scan. HISTORY: Nausea and vomiting. COMPARISON: None. TECHNIQUE: Serial static images were obtained over the stomach following oral administration of 2 mCi 99m-Tc sulfur colloid. FINDINGS: The stomach empties into the small bowel without evidence of reflux in the area of the esophagus. There is 48 percent retained tracer activity within stomach at one hour (normal 34.8 percent to 91 percent). There is 47 percent retained tracer activity within stomach at 2 hours (normal 2.7 percent to 60 percent). There is 26 percent retained tracer activity within stomach at 3 hours (normal 0.5 percent to 28 percent). There is 11 percent retained tracer activity within stomach at 4 hours (normal 0.0 percent to 10 percent). The estimated time for half emptying of gastric contents, i.e. 'gastric emptying time' is 52 minutes (normal is 66 +/- 22 minutes). IMPRESSION: Normal gastric emptying half-time and normal gastric emptying at 1 hour, 2 hours and 3 hours. There is slightly delayed gastric emptying at 4 hours. Electronically signed by: Lakisha Landers MD (10/11/2020 2:37 PM) [facility]
== END ==
LOC: NM 10:00
PROVIDERS: ATTEND Family Medicine
DX: K30 Functional dyspepsia (principal); R63.4 Abnormal weight loss
CPT/HCPCS: 78264; A9541

== ENCOUNTER → 2021-02-02 | Outpatient (CLI) | payer BC, MEDICARE ==
[2020-09-15 14:51] VITALS: BP 120/67
[~2021-02-02] MED LIST changes: -ALEN70TA60 PO; +ALEN70TA71 PO
--- NOTE | 2021-02-02 12:29 | RAD ---
PA and lateral chest x-ray compared to single frontal chest radiograph dated September 13, 2020 for dys pnea. FINDINGS: Hyperinflation and extensive apical emphysema. Calcified right lung granuloma. Normal heart size. Diffuse osteopenia. IMPRESSION: 1. Hyperinflation and advanced apical emphysema. No definite focal pneumonic infiltrates. 2. Calcified right lung granuloma. 3. Diffuse osteopenia. Electronically signed by: Mayur Hutton MD (02/02/2021 12:27 PM) [id number]
== END ==
LOC: PMG 11:35
PROVIDERS: ATTEND Nurse Practitioner Family
DX: J43.8 Other emphysema (principal); J98.4 Other disorders of lung; M85.80 Other specified disorders of bone density and structure, unspecified site
CPT/HCPCS: 71046

== ENCOUNTER → 2021-05-09 | Outpatient (CLI) | payer OTHER, MEDICARE ==
[2020-09-15 14:51] VITALS: BP 120/67
--- NOTE | 2021-05-09 16:57 | RAD ---
EXAM: Right hip, 2 views; right knee, 3 views. HISTORY: Pain. COMPARISON: None. FINDINGS: Right hip: 2 views of the right hip are obtained. There is no fracture, dislocation or subluxation. T here is a suspected chronic fragmented osteophyte along the superior acetabulum. There is degenerativ e change at the lumbosacral junction. Right knee: 3 views of the right knee are obtained. There is no fracture, dislocation or subluxation. There is no joint effusion. IMPRESSION: No acute osseous finding. Electronically signed by: Lakisha Landers MD (05/09/2021 4:55 PM) [id number]
== END ==
LOC: RAD 16:21
PROVIDERS: ATTEND Family Medicine
DX: M25.561 Pain in right knee (principal); M25.551 Pain in right hip; M47.817 Spondylosis without myelopathy or radiculopathy, lumbosacral region; W19.XXXA Unspecified fall, initial encounter
CPT/HCPCS: 73502; 73562

== ENCOUNTER → 2021-08-15 | Outpatient (CLI) | payer OTHER, MEDICARE ==
[2020-09-15 14:51] VITALS: BP 120/67
--- NOTE | 2021-08-15 16:35 | RAD ---
EXAM: Bilateral screening mammogram. HISTORY: 70-year-old female presents for screening mammography. TECHNIQUE: Full-field digital craniocaudal and mediolateral oblique views of both breasts are obtaine d for evaluation. Computer aided detection was applied. COMPARISON: 06/19/2016 BREAST PARENCHYMAL DENSITY: Level D - Extremely dense. FINDINGS: There is no new suspicious mass, microcalcification or region of architectural distortion. There are benign calcifications within both breasts. IMPRESSION: BI-RADS Category 2: Benign finding(s). RECOMMENDATION: Annual mammography is recommended. If your mammogram demonstrates that you have dense breast tissue, which could hide abnormalities, and if you have other risk factors for breast cancer that have been identified, you might benefit from s upplemental screening tests that may be suggested by your ordering physician. Dense breast tissue, i n and of itself, is a relatively common condition. This information is not provided to cause undue c oncern, but rather to raise your awareness and to promote discussion with your physician regarding th e presence of other risk factors, in addition to dense breast tissue. A report of your mammography re sults will be sent to you and your physician. You should contact your physician if you have any ques tions or concerns regarding this report. Mammography is a sensitive method for finding small breast cancers, but it does not detect them all a nd is not a substitute for careful clinical examination. A negative mammogram does not negate a clin ically suspicious finding and should not result in delay in biopsying a clinically suspicious abnorma lity. PQRS compliance statement - Patient information was entered into a reminder system with a target due date for the next mammogram. "Our facility is accredited by the [employer] Mammography Program." Electronically signed by: Lakisha Landers MD (08/15/2021 4:32 PM) [id number]
== END ==
LOC: MAMMO 11:23
PROVIDERS: ATTEND Family Medicine
DX: Z12.31 Encounter for screening mammogram for malignant neoplasm of breast (principal); R92.1 Mammographic calcification found on diagnostic imaging of breast
CPT/HCPCS: 77067

== ENCOUNTER 2021-11-17 20:39 | Emergency (ER) | payer OTHER, MEDICARE ==
[~2021-11-17] VITALS: Ht 152.4 cm; Wt 33.4 kg
--- NOTE | 2021-11-17 21:12 | PHYS DOC ---
Past History Past Medical History: COPD, Hypertension (XIAO RYDER APRN) Past Medical History: COPD (VALERY BLANDON MD) Past Surgical History: (XIAO RYDER APRN) Smoking: Non-smoker Alcohol Use: Heavy Drug Use: None (XIAO RYDER APRN) Adult General Chief Complaint Chief Complaint: SHORTNESS OF BREATH HPI HPI Patient is a 71-year-old female patient with history of COPD, hypertension, presenting today complaining of shortness of breath for 3 days. Patient states symptoms are worse on exertion. She states she stopped smoking over 20 years ago. She states she is employed at [employer] and could have been exposed to COVID-19. Denies any fever. Denies any chest pain. Reports receiving [employer]J COVID-vaccine sometime last year. She states her symptoms do not feel like a COVID exacerbation. She states she had a breathing treatment prior to coming to the ER (XIAO RYDER APRN) Review of Systems Review of Systems Constitutional: Denies fever or chills [] Eyes: Denies change in visual acuity, redness, or eye pain [] HENT: Denies nasal congestion or sore throat [] Respiratory: Reports shortness of breath Cardiovascular: No additional information not addressed in HPI [] GI: Denies abdominal pain, nausea, vomiting, bloody stools or diarrhea [] : Denies dysuria or hematuria [] Musculoskeletal: Denies back pain or joint pain [] Integument: Denies rash or skin lesions [] Neurologic: Denies headache, focal weakness or sensory changes [] All other systems were reviewed and found to be within normal limits, except as documented in this note. (XIAO RYDER APRN) Allergies Allergies Allergies Coded Allergies Type Severity Reaction Last Updated Verified Penicillins Allergy Unknown 01/06/18 Yes (XIAO RYDER APRN) Physical Exam Physical Exam Constitutional: Well developed, well nourished, no acute distress, non-toxic appearance. [] HENT: Normocephalic, atraumatic, bilateral external ears normal, oropharynx moist, no oral exudates, nose normal. [] Eyes: PERRLA, EOMI, conjunctiva normal, no discharge. [] Neck: Normal range of motion, no tenderness, supple, no stridor. [] Cardiovascular:Heart rate regular rhythm Lungs & Thorax: Patient is short of breath, O2 sats 88% on room air Abdomen: Bowel sounds normal, soft, no tenderness, no masses, no pulsatile masses. [] Skin: Warm, dry, no erythema, no rash. [] Back: No tenderness, no CVA tenderness. [] Extremities: No tenderness, no cyanosis, no clubbing, ROM intact, no edema. [] Neurologic: Alert and oriented X 3, normal motor function, normal sensory function, no focal deficits noted. [] Psychologic: Affect normal, judgement normal, mood normal. [] (XIAO RYDER APRN) Current Patient Data Vital Signs Vital Signs Date Time Temp Pulse Resp B/P (MAP) Pulse Ox O2 Delivery O2 Flow Rate FiO2 11/17/21 21:03 98.5 98 20 141/72 (95) 93 Room Air (XIAO RYDER APRN) EKG EKG [] (XIAO RYDER APRN) EKG Interpretation of EKG shows sinus rhythm at 83 bpm. Does have findings of low voltage and right axis deviation. Has a mild right bundle branch block. But no findings of acute STEMI of contralateral changes. Time of EKG is 2230 hrs. (VALERY BLANDON MD) Radiology/Procedures Radiology/Procedures [] (XIAO RYDER APRN) Radiology/[place] [address] IMAGING REPORT Signed PATIENT: COLTON MONTGOMERY ACCOUNT: [id number] : 1950 LOCATION: ER AGE: 71 SEX: F EXAM STATUS: REG ER ORD. PHYSICIAN: XIAO RYDER APRN REASON: shortness of breath PROCEDURE: PORTABLE CHEST 1V Study: XR CHEST 1V Indication: Shortness of breath. Comparison: 02/02/2021 Findings: Bilobed nodular focus at the mid right lung measuring 2.2 cm transverse and is more conspicuous from the most recent comparison but unchanged from 09/13/2020 in keeping with a benign process. Basilar airspace infiltrates on the left more so than right. No layering effusion or pneumothorax. Hyperexpanded lungs and increased lung markings. Similar configuration of the cardiomediastinal silhouette and dong. Impression: Basilar infiltrates at the left more so than right lower lung suspicious for pneumonia in the appropriate clinical setting. Follow-up is needed to confirm resolution given background emphysema. Electronically signed by: ARJUN RICHARDSON MD (11/17/2021 10:36 PM) [facility] DICTATED AND SIGNED BY: ARJUN RICHARDSON MD DATE: 11/17/212232 CC: VALERY BLANDON MD; XIAO RYDER APRN; KRISTAL CESPEDES ~MTH0 0 (VALERY BLANDON MD) Heart Score C/O Chest Pain: N/A Risk Factors: Risk Factors: DM, Current or recent (<one month) smoker, HTN, HLP, family history of CAD, obesity. Risk Scores: Risk Factors: DM, Current or recent (<one month) smoker, HTN, HLP, family history of CAD, obesity. (XIAO RYDER APRN) Course & Med Decision Making Course & Med Decision Making Pertinent Labs and Imaging studies reviewed. (See chart for details) This is a 71-year-old female patient presented to the ED today with shortness of breath, symptoms began 3 days ago. History of COPD. She states the symptoms do not feel like her normal COPD exacerbation. She states she received a breathing treatment at home prior to coming to the ED Vitals on arrival to the ED temperature 98.5, heart rate 98, respirations 20 on room air, blood pressure 141/72, O2 sats 88 to 93% on room air. [address] Borjas (XIAO RYDER APRN) Course & Med Decision Making COPD, Hypoxia, - See Notes Xiao Ryder. Prior shift change. Pt. to take Zithromax to 50 mg a day. Use MDI 2 puffs 4 times a day. Follow-up pending Covid testing. Return if any concerns. Follow-up primary care. Avoid smoking. Self isolate. Impression: 1. COPD exacerbation 2. Pneumonia 3. Anemia hemoglobin 11.3 4. Malnutrition - Albumin 2.8 5. Leukocytosis 12.0 (VALERY BLANDON MD) Dragon Disclaimer Dragon Disclaimer This electronic medical record was generated, in whole or in part, using a voice recognition dictation system. (XIAO RYDER APRN) Departure Departure: Referrals: KRISTAL CESPEDES (PCP) Scripts Azithromycin (ZITHROMAX) 250 Mg Tablet 250 MG PO DAILY for ANTI-BIOTIC for 5 Days, #5 TAB 0 Refills Prov: VALERY BLANDON MD 11/18/21 Dragon Disclaimer This chart was dictated in whole or in part using Voice Recognition software in a busy, high-work load, and often noisy Emergency Department environment. It may contain unintended and wholly unrecognized errors or omissions. (VALERY BLANDON MD) Attending Signature Attending Signature I have participated in the care of this patient and I have reviewed and agree with all pertinent clinical information above including history, exam, and recommendations. (VALERY BLANDON MD) XIAO RYDER APRN Nov 17, 2021 21:12 VALERY BLANDON MD Nov 17, 2021 22:31
[2021-11-17] MEDS ORDERED: DEXAMETHASONE SOD PHOS 10 MG/ML VIAL. IVP ONE (21:15)
[2021-11-17] MEDS ORDERED: 0.9 % SODIUM CHLORIDE 10 ML DISP.SYRIN. IV PRN (21:15)
[2021-11-17] MEDS ORDERED: NOREPINEPHRINE BITARTRATE 8 MG in IV DEXTROSE 5% 250 ML IV PRN (21:15)
[2021-11-17 21:42] LABS: BASO % 0 % (0-3); EOS % 0 % (0-3); HEMOGLOBIN 11.3 g/dL (12.0-15.5); LYMPH # 0.3 x10^3/uL (1.0-4.8); LYMPH % 3 % (24-48); MEAN CORPUSCULAR HEMOGLOBIN 27 pg (25-35); MEAN CORPUSCULAR HGB CONC 32 g/dL (31-37); MEAN CORPUSCULAR VOLUME 85 fL (79-100); MONO # 0.7 x10^3/uL (0.0-1.1); MONO % 6 % (0-9); NEUT # 10.9 x10^3uL (1.8-7.7); NEUT % 91 % (31-73); PLATELET COUNT 377 x10^3/uL (140-400); RED BLOOD COUNT 4.14 x10^6/uL (3.50-5.40); RED CELL DISTRIBUTION WIDTH 14.2 % (11.5-14.5)
[2021-11-17 21:48] LABS: CALCIUM 7.9 mg/dL (8.5-10.1); CREATININE 0.6 mg/dL (0.6-1.0); GFR 99.1; POTASSIUM 4.1 mmol/L (3.5-5.1)
[2021-11-17 21:59] LABS: INFLUENZA A PATIENT NEGATIVE (NEGATIVE); INFLUENZA B PATIENT NEGATIVE (NEGATIVE)
[2021-11-17 22:05] LABS: ALBUMIN 2.8 g/dL (3.4-5.0); ALBUMIN/GLOBULIN RATIO 0.9 (1.0-1.7); TOTAL BILIRUBIN 0.6 mg/dL (0.2-1.0); TOTAL PROTEIN 5.9 g/dL (6.4-8.2)
--- NOTE | 2021-11-17 22:38 | RAD ---
Study: XR CHEST 1V Indication: Shortness of breath. Comparison: 02/02/2021 Findings: Bilobed nodular focus at the mid right lung measuring 2.2 cm transverse and is more conspicuous from the most recent comparison but unchanged from 09/13/2020 in keeping with a benign process. Basilar air space infiltrates on the left more so than right. No layering effusion or pneumothorax. Hyperexpanded lungs and increased lung markings. Similar configuration of the cardiomediastinal silhouette and hil a. Impression: Basilar infiltrates at the left more so than right lower lung suspicious for pneumonia in the appropr iate clinical setting. Follow-up is needed to confirm resolution given background emphysema. Electronically signed by: ARJUN RICHARDSON MD (11/17/2021 10:36 PM) [facility]
--- NOTE | 2021-11-17 22:52 | EKG ---
[address] [address] Test Date: 2021-11-17 Test Time: 22:30:16 Pat Name: COLTON MONTGOMERY Department: Room: Gender: F Binder Selector: : 1950 Requested By: XIAO RYDER Order Number: [id number] Reading MD: Haider Abdul Measurements Intervals [place] Rate: 83 P: 75 SD: 138 QRS: 97 QRSD: 110 T: 39 QT: 392 QTc: 467 Interpretive Statements SINUS RHYTHM RIGHTWARD AXIS LOW LIMB LEAD VOLTAGE INCOMPLETE RIGHT BUNDLE BRANCH BLOCK Electronically Signed On 11-18-2021 14:24:59 BROADCAST OPERATIONS DIRECTOR by Haider Abdul
[2021-11-17] MEDS ORDERED: methylPREDNISolone SOD SUCC PF 125 MG/2 ML VIAL. IV ONE (23:15)
[2021-11-17] MEDS ORDERED: AZITHROMYCIN 250 MG TABLET. PO ONE (23:15)
[2021-11-17] MEDS ORDERED: ALBUTEROL SULFATE 8GM INHALER. INH ONE (23:15)
[2021-11-17] MEDS ORDERED: IPRATRPIUM/ALBUTEROL 0.5/2.5MG 3 ML NEBU. NEB ONE (23:15)
[2021-11-17] MEDS ORDERED: IV NORMAL SALINE 50ML 50 ML ONE (23:27)
[2021-11-17] MEDS ORDERED: cefTRIAXone SODIUM 1 GM VIAL ONE (23:28)
[2021-11-18 00:52] VITALS: BP 113/82
[2021-11-18] MEDS ORDERED: AZIT250T PO (01:13)
== END 2021-11-18 01:22 | disposition home or self-care (01) ==
LOC: ER 20:39
DX: J44.1 Chronic obstructive pulmonary disease with (acute) exacerbation (principal); J18.9 Pneumonia, unspecified organism; D64.9 Anemia, unspecified; E46 Unspecified protein-calorie malnutrition; D72.829 Elevated white blood cell count, unspecified; I10 Essential (primary) hypertension; F10.20 Alcohol dependence, uncomplicated; Z20.822 Contact with and (suspected) exposure to COVID-19; Z68.1 Body mass index [BMI] 19.9 or less, adult; Z88.0 Allergy status to penicillin; Y90.9 Presence of alcohol in blood, level not specified
CPT/HCPCS: 36415; 71045; 80053; 82553; 83605; 83880; 84484; 85025; 87040; 87804; 93005; 94640; 96365; 96375; 99285; C9803; J0696; J1100; U0003; 94664